=== PATIENT | female | born 1960 | race African-American/Black ===

== ENCOUNTER 2016-11-23 17:50 | Emergency (ER) | payer OTHER ==
[2016-11-23 17:54] VITALS: TEMP 98.2; BMI 29.2
--- NOTE | 2016-11-23 19:02 | PDOC ---
History of Present Illness - General Chief Complaint: Chest Pain Stated Complaint: CHEST PAIN Time Seen by Provider: 11/23/16 18:31 History Source: Patient Exam Limitations: No Limitations - History of Present Illness Initial Comments: 56 yo F with h/o HTN and CAD s/p 2 stents presented to the ED with chest pain. The pain started this after around 2pm, substernal, non-radiating, 5/10 then and 3/10 now, not relieved with nitroglycerin and no other associated symptoms. Her last stress test and ECHO were 2 weeks ago and negative. Denies fever, chills, sob, abd pain, weakness, urinary or bowel symptoms. Past History - Past Medical History Allergies/Adverse Reactions: Allergies Allergy/AdvReac Type Severity Reaction Status Date / Time No Known Allergies Allergy Verified 11/23/16 17:54 Home Medications: Ambulatory Orders Amlodipine Besylate [Norvasc -] 5 mg PO DAILY 02/19/14 Clopidogrel Bisulfate [Plavix -] 75 mg PO DAILY 12/09/15 Metoprolol Succinate [Toprol XL -] 25 mg PO DAILY 12/09/15 Aspirin [ASA -] 81 mg PO DAILY #0 tab.chew 12/10/15 Atorvastatin Ca [Lipitor] 40 mg PO HS #0 tablet 12/10/15 Cardiac Disorders: Yes HTN: Yes - Surgical History Cardiac Surgery: Yes (STENT) - Psycho/Social/Smoking Cessation Hx Anxiety: No Suicidal Ideation: No Smoking Status: No Smoking History: Never smoked Number of Cigarettes Smoked Daily: 0 Hx Alcohol Use: Yes (wine and beer occasionally) Drug/Substance Use Hx: No Substance Use Type: Alcohol Review of Systems - Review of Systems Able to Perform ROS?: Yes Is the patient limited Bermudian proficient: No Constitutional: No: Chills, Fever Respiratory: No: Cough, Orthopnea, Shortness of Breath Cardiac (ROS): Yes: Chest Pain ABD/GI: No: Nausea, Vomiting, Abdominal cramping *Physical Exam - Vital Signs Last Vital Signs Temp Pulse Resp BP Pulse Ox 98.2 F 70 17 109/73 98 11/23/16 17:51 11/23/16 19:42 11/23/16 19:42 11/23/16 19:42 11/23/16 19:42 - Physical Exam General Appearance: No: Apparent Distress Neck: positive: Trachea midline, Supple Respiratory/Chest: positive: Lungs Clear, Normal Breath Sounds Cardiovascular: positive: Regular Rhythm, Regular Rate, S1, S2. negative: Murmur Gastrointestinal/Abdominal: positive: Normal Bowel Sounds. negative: Tender, Tenderness Extremity: negative: Swelling, Calf Tenderness Integumentary: negative: Swelling Neurologic: positive: Fully Oriented, Alert ED Treatment Course - LABORATORY CBC & Chemistry Diagram: 11/23/16 19:00 11/23/16 19:00 - ADDITIONAL ORDERS Additional order review: 11/23/16 19:00 RBC 4.43 MCV 90.4 MCHC 32.5 RDW 13.9 MPV 8.1 Neutrophils % 49.2 Lymphocytes % 38.9 Monocytes % 8.9 Eosinophils % 2.5 Basophils % 0.5 - RADIOLOGY Radiology Studies Ordered: Category Date Time Status CXRPORT [CHEST X-RAY PORTABLE*] [RAD] Stat Radiology 11/23/16 19:06 Completed Medical Decision Making - Medical Decision Making 11/23/16 19:01 *DC/Admit/Observation/Transfer Diagnosis at time of Disposition: Precordial chest pain - Discharge Dispostion Disposition: HOME Condition at time of disposition: Stable Admit: No - Referrals Referrals: Jayy Nguyễn MD [Primary Care Provider] - Mono Mishra MD [Staff Physician] - - Patient Instructions Printed Discharge Instructions: DI for Chest Pain Additional Instructions: Please 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
[2016-11-23 19:16] LABS: BASOPHIL 0.5 % (0-2.0); EOSINOPHIL 2.5 % (0-4.5); MCH 29.4 pg (25.7-33.7); MCHC 32.5 g/dl (32.0-36.0); MEAN CELL VOLUME 90.4 fl (80-96); MEAN PLT VOLUME 8.1 fl (7.5-11.1); NEUTROPHILS 49.2 % (42.8-82.8); PLATELET COUNT 140 K/MM3 (134-434); RDW 13.9 % (11.6-15.6); WHITE BLOOD COUNT 4.2 K/mm3 (4.0-10.0)
[2016-11-23 19:37] LABS: ALBUMIN 3.7 g/dl (3.4-5.0); ALK PHOS 81 U/L (45-117); ANION GAP 10 (8-16); BILIRUBIN,TOTAL 0.5 mg/dL (0.2-1.0); CALCIUM 8.9 mg/dL (8.5-10.1); CO2 28 mmol/L (21-32); COCKROFT - GAULT 148.4355; CREATININE 0.6 mg/dL (0.55-1.02); GLUCOSE,RANDOM 100 mg/dL (74-106); SGOT/AST 35 U/L (15-37); SGPT/ALT 35 U/L (12-78); TOT PROT 7.6 g/dl (6.4-8.2)
[2016-11-23 19:38] LABS: TROPONIN I < 0.02 ng/ml (0.00-0.05)
[2016-11-23 19:42] VITALS: BP 109/73; PULSE 70
[2016-11-23 20:00] LABS: URINE APPEARANCE CLEAR; URINE BILIRUBIN NEGATIVE (NEGATIVE); URINE BLOOD NEGATIVE (NEGATIVE); URINE COLOR STRAW; URINE GLUCOSE (UA) NEGATIVE (NEGATIVE); URINE KETONE NEGATIVE (NEGATIVE); URINE NITRITE NEGATIVE (NEGATIVE); URINE PROTEIN NEGATIVE (NEGATIVE); URINE UROBILINOGEN NEGATIVE E.U./dl (0.2-1.0)
[2016-11-23 20:26] LABS: URINE LEUK ESTERASE 1+ (NEGATIVE)
[2016-11-23 20:27] LABS: URINE BACTERIA RARE /hpf (NONE SEEN); URINE MUCUS RARE; URINE RBC 1 /hpf (0-3); URINE WBC 4 /hpf (3-5)
[2016-11-24 00:38] LABS: TROPONIN I < 0.02 ng/ml (0.00-0.05)
--- NOTE | 2016-11-24 01:04 | PDOC ---
*Physical Exam - Vital Signs Last Vital Signs Temp Pulse Resp BP Pulse Ox 98.2 F 70 17 109/73 98 11/23/16 17:51 11/23/16 19:42 11/23/16 19:42 11/23/16 19:42 11/23/16 19:42 ED Treatment Course - LABORATORY CBC & Chemistry Diagram: 11/23/16 19:00 11/23/16 19:00 - ADDITIONAL ORDERS Additional order review: Laboratory Results 11/24/16 11/23/16 11/23/16 00:08 19:35 19:00 Sodium Potassium Chloride Carbon Dioxide Anion Gap BUN Creatinine Creat Clearance w eGFR Random Glucose Calcium Magnesium Total Bilirubin AST ALT Alkaline Phosphatase Creatine Kinase 510 H 604 H D CK-MB (CK-2) 7.023 H Troponin I < 0.02 < 0.02 Total Protein Albumin Urine Color Straw Urine Appearance Clear Urine pH 7.0 D Ur Specific [place] 1.008 Urine Protein Negative Urine Glucose (UA) Negative Urine Ketones Negative Urine Blood Negative Urine Nitrite Negative Urine Bilirubin Negative Urine Urobilinogen Negative Ur Leukocyte Esterase 1+ H Urine RBC 1 Urine WBC 4 Ur Epithelial Cells Rare Urine Bacteria Rare Urine Mucus Rare 11/23/16 11/23/16 19:00 19:00 Sodium 141 Potassium 4.0 Chloride 103 Carbon Dioxide 28 Anion Gap 10 BUN 10 Creatinine 0.6 Creat Clearance w eGFR > 60 Random Glucose 100 Calcium 8.9 Magnesium 2.2 Total Bilirubin 0.5 D AST 35 D ALT 35 Alkaline Phosphatase 81 Creatine Kinase CK-MB (CK-2) Troponin I Total Protein 7.6 Albumin 3.7 Urine Color Urine Appearance Urine pH Ur Specific [place] Urine Protein Urine Glucose (UA) Urine Ketones Urine Blood Urine Nitrite Urine Bilirubin Urine Urobilinogen Ur Leukocyte Esterase Urine RBC Urine WBC Ur Epithelial Cells Urine Bacteria Urine Mucus 11/23/16 19:00 RBC 4.43 MCV 90.4 MCHC 32.5 RDW 13.9 MPV 8.1 Neutrophils % 49.2 Lymphocytes % 38.9 Monocytes % 8.9 Eosinophils % 2.5 Basophils % 0.5 *DC/Admit/Observation/Transfer Diagnosis at time of Disposition: Precordial chest pain - Discharge Dispostion Disposition: HOME Condition at time of disposition: Stable Admit: No - Referrals Referrals: Jayy Nguyễn MD [Primary Care Provider] - Mono Mishra MD [Staff Physician] - - Patient Instructions Printed Discharge Instructions: DI for Chest Pain Additional Instructions: Please follow up with your pcp and supervisor dehydrogenation if symptoms don't get better
--- NOTE | 2016-11-24 12:58 | EKG ---
Test Reason : Blood Pressure : / mmHG Vent. Rate : 059 BPM Atrial Rate : 059 BPM P-R Int : 204 ms QRS Dur : 082 ms QT Int : 384 ms P-R-T Axes : 066 -01 030 degrees QTc Int : 380 ms POOR DATA QUALITY, INTERPRETATION MAY BE ADVERSELY AFFECTED SINUS BRADYCARDIA CANNOT RULE OUT SEPTAL INFARCT , AGE UNDETERMINED ABNORMAL ECG WHEN COMPARED WITH ECG OF 09-DEC-2015 14:50, POSSIBLE SEPTAL INFARCT IS NOW PRESENT Confirmed by RAMONA HINES MD ([id number]) on 11/24/2016 12:57:59 PM Referred By: Confirmed By:RAMONA HINES MD
--- NOTE | 2016-11-24 13:27 | EKG ---
Test Reason : Blood Pressure : / mmHG Vent. Rate : 059 BPM Atrial Rate : 059 BPM P-R Int : 202 ms QRS Dur : 090 ms QT Int : 392 ms P-R-T Axes : 066 -14 018 degrees QTc Int : 388 ms SINUS BRADYCARDIA OTHERWISE NORMAL ECG WHEN COMPARED WITH ECG OF 09-DEC-2015 14:50, NO SIGNIFICANT CHANGE WAS FOUND Confirmed by LILIBETH DONIS MD ([id number]) on 11/24/2016 1:27:09 PM Referred By: JEAN CLAUDE Confirmed By:LILIBETH DONIS MD
== END 2016-11-24 01:22 | disposition home or self-care (01) ==
LOC: JER 17:50
DX: R07.2 Precordial pain (principal); I10 Essential (primary) hypertension; Z95.5 Presence of coronary angioplasty implant and graft
CPT/HCPCS: 36415; 71010-TC; 80053; 81003; 81015; 82550; 82553; 83036; 83735; 84484; 85025; 93005; 93010; 99285-25

== ENCOUNTER 2018-05-26 08:36 | Emergency (ER) | payer OTHER ==
--- NOTE | 2018-05-26 08:41 | PDOC ---
Attending Attestation - Resident Resident Name: Shira Clarke - HPI HPI: 05/26/18 10:01 Pt presents to the ED complaining of the acute onset of vertigo that has now resolved. Patient reports that she had vertigo with diaphoresis, headache, gait unsteadiness, that resolved spontaneously within 20 minutes. also reports a brief episode of sharp, stabbing chest pain that lasted minutes. Denies shortness of breath. - Physicial Exam PE: 05/26/18 10:09 Agree with resident exam. PAtient is alert and oriented x 3 and in no acute distress. Cranial nerves are grossly intact. She is ambulatory with a steady gait. - Medical Decision Making 05/26/18 10:10 Pt presents to the ED complaining of a transient episode of vertigo. Patient has an extensive cardiac history, and for that reason, is at higher than usual risk of CVA. Will check labs and MRI to rule out CVA, likely discharge home if labs are negative.
[2018-05-26 08:43] VITALS: BMI 29.2
--- NOTE | 2018-05-26 09:57 | PDOC ---
History of Present Illness - General Chief Complaint: Lightheaded Stated Complaint: DIZZINESS Time Seen by Provider: 05/26/18 08:40 History Source: Patient - History of Present Illness Initial Comments: 57F w/ pmhx of HTN, HLD, CAD (s/p 2 stents) presents with dizziness. Pt states last night she had a 10/10 headache at 10:30pm while watching TV after which she checked her BP which was 133/84 at the time. At the time, she also reported substernal chest pain with radiation to the L breast. Pt states she has had this chest pain before, but has since resolved. She proceeded to sleep and woke up this morning with new onset dizziness. Pt reports that during this time, the room was spinning and she was unable to walk to the bathroom because of the dizziness. She does state taking all of her medications this morning. Admits to drinking hot chocolate this AM. Upon exam in the ED, her symptoms have since resolved. Denies f/c, n/v, cp, sob, abd pain, urinary/bowel symptoms. 05/26/18 09:51 Past History - Past Medical History Allergies/Adverse Reactions: Allergies Allergy/AdvReac Type Severity Reaction Status Date / Time No Known Allergies Allergy Verified 05/26/18 08:38 Home Medications: Ambulatory Orders Amlodipine Besylate [Norvasc -] 5 mg PO DAILY 02/19/14 Clopidogrel Bisulfate [Plavix -] 75 mg PO DAILY 12/09/15 Metoprolol Succinate [Toprol XL -] 25 mg PO DAILY 12/09/15 Aspirin [ASA -] 81 mg PO DAILY #0 tab.chew 12/10/15 Atorvastatin Ca [Lipitor] 40 mg PO HS #0 tablet 12/10/15 Cardiac Disorders: Yes (cad) COPD: No HTN: Yes - Surgical History Cardiac Surgery: Yes (STENT) - Suicide/Smoking/Psychosocial Hx Smoking Status: No Smoking History: Never smoked Number of Cigarettes Smoked Daily: 0 Information on smoking cessation initiated: No Hx Alcohol Use: No Drug/Substance Use Hx: No Substance Use Type: Alcohol Review of Systems - Review of Systems Able to Perform ROS?: Yes Is the patient limited Malian proficient: No Constitutional: No: Chills, Fever HEENTM: No: Blurred Vision, Recent change in vision, Double Vision, Hearing Loss Respiratory: No: Shortness of Breath, SOB with Exertion, SOB at Rest Cardiac (ROS): Yes: See HPI ABD/GI: Yes: Constipated. No: Diarrhea, Nausea, Vomiting Neurological: Yes: See HPI *Physical Exam - Vital Signs Last Vital Signs Temp Pulse Resp BP Pulse Ox 99.0 F 77 18 144/78 100 05/26/18 08:38 05/26/18 08:38 05/26/18 08:38 05/26/18 08:38 05/26/18 09:03 - Physical Exam General Appearance: Yes: Appropriately Dressed HEENT: positive: Normal ENT Inspection Neck: positive: Supple Respiratory/Chest: positive: Normal Breath Sounds Cardiovascular: positive: Regular Rhythm, Regular Rate, S1, S2 Vascular Pulses: Dorsalis-Pedis (R): 2+, Doralis-Pedis (L): 2+ Neurologic: positive: manager food II-XII NML intact (Romberg test, [id number], heel- to-walters test WNL), Fully Oriented ED Treatment Course - LABORATORY CBC & Chemistry Diagram: 05/26/18 09:30 05/26/18 09:30 Medical Decision Making - Medical Decision Making 05/26/18 11:32 Dizziness; Ddx includes vertigo, TIA, orthostatic hypotension -Likely transient vertigo episode given resolution of patient's symptoms normal cerebellar testing on physical exam -Will obtain Head CT and brain MRI to rule out stroke/TIA because of patient's significant cardiac/vascular history (Pt has CAD s/p 2 stents) -Unlikely orthostasis:Supine 123/72, Sitting 117/76, Standing 123/71 -CBC, CMP, U/A, CK, CKMB, cardiac profile, 05/26/18 10:07 -Head CT neg 05/26/18 11:04 -Trops, CK, CK-MB neg -Awaiting brain MRI results 05/26/18 16:48 -Brain MRI results not concerning for any acute condition. 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 -Recommended pt to follow up with pcp and given referral to see neurologist for further evaluation. *DC/Admit/Observation/Transfer Diagnosis at time of Disposition: Dizziness - Discharge Dispostion Disposition: HOME Condition at time of disposition: Good Decision to Admit order: No - Referrals Referrals: Jayy Nguyễn MD [Primary Care Provider] - Alex Stokes MD [Staff Physician] - - Patient Instructions Additional Instructions: You were seen in the ED for complaints of dizziness. In the ED, a CT head and brain MRI were done. Your results did not show any acute condition. You are advised to follow up with your primary care physician within 1 week. Please also follow up with a neurologist within 1 week. You are given a referral to see Dr. Stokes. If you experience persistent dizziness, worsening headache, vision changes, chest pain, shortness of breath, please proceed to your nearest emergency room immediately. - Post Discharge Activity
[2018-05-26 10:04] LABS: BASO % 0.9 % (0-2.0); EOS % 2.3 % (0-4.5); HEMATOCRIT 38.6 % (32.4-45.2); HEMOGLOBIN 12.7 GM/dL (10.7-15.3); MCH 29.3 pg (25.7-33.7); MCHC 32.9 g/dl (32.0-36.0); MEAN CELL VOLUME 89.2 fl (80-96); MEAN PLT VOLUME 8.8 fl (7.5-11.1); MONO % 10.4 % (3.8-10.2); NEUT % 50.4 % (42.8-82.8); PLATELET COUNT 172 K/MM3 (134-434); RBC 4.33 M/mm3 (3.60-5.2); WHITE BLOOD COUNT 3.8 K/mm3 (4.0-10.0)
[2018-05-26 10:20] LABS: ALBUMIN 3.6 g/dl (3.4-5.0); ALK PHOS 92 U/L (45-117); ANION GAP 8 MMOL/L (8-16); BILIRUBIN,TOTAL 0.5 mg/dL (0.2-1); BLOOD UREA NITROGEN 13 mg/dL (7-18); CALCIUM 8.4 mg/dL (8.5-10.1); CHLORIDE 109 mmol/L (98-107); CO2 25 mmol/L (21-32); CREATININE 0.7 mg/dL (0.55-1.3); GLUCOSE,RANDOM 107 mg/dL (74-106); POTASSIUM 3.7 mmol/L (3.5-5.1); SGOT/AST 23 U/L (15-37); SGPT/ALT 27 U/L (13-61); SODIUM 142 mmol/L (136-145); TOT PROT 7.6 g/dl (6.4-8.2)
[2018-05-26 10:37] LABS: URINE APPEARANCE SLCLOUDY; URINE BILIRUBIN NEGATIVE (<2.0 mg/dL); URINE COLOR YELLOW; URINE GLUCOSE (UA) NEGATIVE (NEGATIVE); URINE KETONE NEGATIVE (NEGATIVE); URINE LEUK ESTERASE TRACE (NEGATIVE); URINE NITRITE NEGATIVE (NEGATIVE); URINE PROTEIN NEGATIVE (NEGATIVE); URINE UROBILINOGEN NEGATIVE mg/dL (0.2-1.0)
[2018-05-26 10:56] LABS: EPI CELLS FEW /HPF (FEW); URINE MUCUS RARE
[2018-05-26] MEDS ORDERED: MIDAZOLAM HCL 2 MG/2 ML SINGLE DOSE VIAL IVPUSH ONE (11:48)
[2018-05-26] MEDS ORDERED: MIDAZOLAM HCL 2 MG/2 ML SINGLE DOSE VIAL ONE (12:01)
--- NOTE | 2018-05-26 14:53 | EKG ---
Test Reason : Blood Pressure : / mmHG Vent. Rate : 062 BPM Atrial Rate : 062 BPM P-R Int : 200 ms QRS Dur : 090 ms QT Int : 390 ms P-R-T Axes : 064 -10 021 degrees QTc Int : 395 ms NORMAL SINUS RHYTHM NORMAL ECG WHEN COMPARED WITH ECG OF 24-NOV-2016 00:03, NO SIGNIFICANT CHANGE WAS FOUND Confirmed by MD Mcdowell Edward ([id number]) on 05/26/2018 2:52:57 PM Referred By: Confirmed By:Demario Mcdowell MD
[2018-05-26 15:52] VITALS: BP 105/74; PULSE 81; TEMP 98.3
== END 2018-05-26 15:52 | disposition home or self-care (01) ==
LOC: JER 08:36
PROC: 3E033NZ Introduction of Analgesics, Hypnotics, Sedatives into Peripheral Vein, Percutaneous Approach (ICD-10-PCS; principal; 2018-05-26)
DX: R42 Dizziness and giddiness (principal); I25.10 Atherosclerotic heart disease of native coronary artery without angina pectoris; I10 Essential (primary) hypertension; Z95.5 Presence of coronary angioplasty implant and graft; E78.5 Hyperlipidemia, unspecified
CPT/HCPCS: 36415; 70450-TC; 70551-TC; 80053; 81003; 81015; 82550; 82553; 84484; 85025; 93005; 93010; 99284-25

== ENCOUNTER 2018-06-20 09:14 | Emergency (ER) | payer OTHER ==
[2018-06-20 09:59] VITALS: BMI 29.5
[2018-06-20] MEDS ORDERED: ACETAMINOPHEN 1000 MG/100 ML VIAL (NON FORMULARY) IVPB ONE (11:17)
[2018-06-20] MEDS ORDERED: SODIUM CHLORIDE 1,000 ML IV STA (11:17)
[2018-06-20] MEDS ORDERED: METOCLOPRAMIDE HCL INJECTION 10 MG/2 ML VIAL IVPB ONE (11:18)
[2018-06-20] MEDS ORDERED: METOCLOPRAMIDE HCL INJECTION 10 MG/2 ML VIAL ONE (11:35)
[2018-06-20] MEDS ORDERED: ACETAMINOPHEN INJECTION 100 ML IVPB ONE (11:35)
[2018-06-20 12:07] LABS: BASO % 0.5 % (0-2.0); EOS % 0.8 % (0-4.5); HEMATOCRIT 41.6 % (32.4-45.2); HEMOGLOBIN 13.1 GM/dL (10.7-15.3); LYMPH % 36.6 % (8-40); MCH 28.3 pg (25.7-33.7); MCHC 31.6 g/dl (32.0-36.0); MEAN CELL VOLUME 89.5 fl (80-96); MONO % 8.7 % (3.8-10.2); NEUT % 53.4 % (42.8-82.8); PLATELET COUNT 168 K/MM3 (134-434); RBC 4.64 M/mm3 (3.60-5.2); RDW 13.8 % (11.6-15.6)
[2018-06-20 12:30] LABS: ALBUMIN 3.5 g/dl (3.4-5.0); ALK PHOS 102 U/L (45-117); ANION GAP 6 MMOL/L (8-16); BILIRUBIN,TOTAL 0.5 mg/dL (0.2-1); BLOOD UREA NITROGEN 14 mg/dL (7-18); CALCIUM 8.6 mg/dL (8.5-10.1); CHLORIDE 106 mmol/L (98-107); CO2 26 mmol/L (21-32); CREATININE 0.7 mg/dL (0.55-1.3); GLUCOSE,RANDOM 95 mg/dL (74-106); SGOT/AST 20 U/L (15-37); SGPT/ALT 29 U/L (13-61); SODIUM 138 mmol/L (136-145); TOT PROT 7.6 g/dl (6.4-8.2)
--- NOTE | 2018-06-20 13:19 | PDOC ---
History of Present Illness - General Chief Complaint: Blood Pressure Problem Stated Complaint: BLOOD PRESSURE PROBLEM Time Seen by Provider: 06/20/18 10:18 - History of Present Illness Initial Comments: 06/20/18 13:12 This is a 57 year old female with a significant past medical history of HTN, HLD , CAD (s/p 2 stents), who presents to the emergency department today complaining of 2 days of elevated blood pressure and intermittent headache. Patient notes she began experiencing a localized right-sided frontal headache yesterday morning, prompting her to check her BP which she measured at 145/105. She describes the headache as gradual onset, sharp and throbbing. Headache resolved without treatment, but returned in the evening. She states her blood pressure remained elevated and this morning at 135/106 prompting her to come to the ED. She notes her normal blood pressure is around 130/70. Took her amlodipine and metoprolol last night as prescribed. Reports similar headaches in the past that also occur on the L side. Has never seen a neurologist for her headaches but has an appointment 07/[address] Diane. BP in the ED mildly elevated to 139/80, pt states she feels much better at this time and denies see. Denies any other sxs. Denies fever, chills. Denies SOB or chest pain. Denies focal weakness, numbness, stiff neck, dizziness, photophobia Denies nausea, vomiting, diarrhea. Denies urinary or bowel changes. Denies recent illness or travel. PCP:Dr. Nguyễn Past History - Past Medical History Allergies/Adverse Reactions: Allergies Allergy/AdvReac Type Severity Reaction Status Date / Time No Known Allergies Allergy Verified 06/20/18 09:56 Home Medications: Ambulatory Orders Amlodipine Besylate [Norvasc -] 5 mg PO DAILY 02/19/14 Clopidogrel Bisulfate [Plavix -] 75 mg PO DAILY 12/09/15 Metoprolol Succinate [Toprol XL -] 25 mg PO DAILY 12/09/15 Aspirin [ASA -] 81 mg PO DAILY #0 tab.chew 12/10/15 Atorvastatin Ca [Lipitor] 40 mg PO HS #0 tablet 12/10/15 Cardiac Disorders: Yes (cad) COPD: No HTN: Yes - Surgical History Cardiac Surgery: Yes (STENT) - Immunization History Immunization Up to Date: Yes - Suicide/Smoking/Psychosocial Hx Smoking Status: No Smoking History: Never smoked Number of Cigarettes Smoked Daily: 0 Hx Alcohol Use: No Drug/Substance Use Hx: No Substance Use Type: Alcohol Review of Systems - Review of Systems Comments:: 06/20/18 13:19 GENERAL/CONSTITUTIONAL: No fever or chills. No weakness. HEAD, EYES, EARS, NOSE AND THROAT: No change in vision. No ear pain or discharge. No sore throat. GASTROINTESTINAL: No nausea, vomiting, diarrhea or constipation. GENITOURINARY: No dysuria, frequency, or change in urination. CARDIOVASCULAR: No chest pain or shortness of breath. RESPIRATORY: No cough, wheezing, or hemoptysis. MUSCULOSKELETAL: No joint or muscle swelling or pain. No neck or back pain. SKIN: No rash NEUROLOGIC: +Right-sided frontal headache. No vertigo, loss of consciousness, or change in strength/sensation. ENDOCRINE: No increased thirst. No abnormal weight change. HEMATOLOGIC/LYMPHATIC: No anemia, easy bleeding, or history of blood clots. ALLERGIC/IMMUNOLOGIC: No hives or skin allergy. *Physical Exam - Vital Signs Last Vital Signs Temp Pulse Resp BP Pulse Ox 98.8 F 80 18 139/82 97 06/20/18 09:56 06/20/18 09:56 06/20/18 09:56 06/20/18 09:56 06/20/18 09:56 - Physical Exam Comments: 06/20/18 13:19 GENERAL: Well-appearing and pleasant. Awake, alert, and fully oriented, in no acute distress HEAD: No signs of trauma EYES: PERRLA, EOMI, sclera anicteric, conjunctiva clear ENT: Auricles normal inspection, hearing grossly normal, nares patent, oropharynx clear without exudates. Moist mucosa NECK: Normal ROM, supple, no lymphadenopathy, JVD, or masses LUNGS: Breath sounds equal, clear to auscultation bilaterally. No wheezes, and no crackles HEART: Regular rate and rhythm, normal S1 and S2, no murmurs, rubs or gallops ABDOMEN: Soft, nontender, normoactive bowel sounds. No guarding, no rebound. No masses EXTREMITIES: Normal range of motion, no edema. No clubbing or cyanosis. No cords , erythema, or tenderness BACK: No midline spinal tenderness in cervical/thoracic/lumbar region NEUROLOGICAL: Normal speech, cranial nerves intact, negative pronator drift, 5/ 5 strength in all 4 extremities, normal sensation to light touch in all 4 extremities, normal cerebellar exam, normal gait, normal reflexes and tone SKIN: Warm, Dry, normal turgor, no rashes or lesions noted. ED Treatment Course - LABORATORY CBC & Chemistry Diagram: 06/20/18 11:40 06/20/18 11:40 - ADDITIONAL ORDERS Additional order review: Laboratory Results 06/20/18 11:40 Sodium 138 Potassium 4.0 Chloride 106 Carbon Dioxide 26 Anion Gap 6 L BUN 14 Creatinine 0.7 Creat Clearance w eGFR > 60 Random Glucose 95 Calcium 8.6 Total Bilirubin 0.5 AST 20 ALT 29 Alkaline Phosphatase 102 Total Protein 7.6 Albumin 3.5 06/20/18 11:40 RBC 4.64 MCV 89.5 MCHC 31.6 L RDW 13.8 MPV 8.0 Neutrophils % 53.4 Lymphocytes % 36.6 Monocytes % 8.7 Eosinophils % 0.8 Basophils % 0.5 - Medications Given in the ED: ED Medications Discontinued Medications Generic Name Dose Route Start Last Admin Trade Name Rajinder PRN Reason Stop Dose Admin Acetaminophen 1,000 mg 06/20/18 11:17 06/20/18 11:46 Ofirmev Injection - IVPB 06/20/18 11:18 1,000 mg ONCE ONE Administration Sodium Chloride 1,000 mls @ 1,000 mls/hr 06/20/18 11:17 06/20/18 11:46 Normal Saline - IV 06/20/18 12:16 1,000 mls/hr ASDIR STA Administration Metoclopramide HCl 10 mg 06/20/18 11:18 06/20/18 11:46 Reglan Injection - IVPB 06/20/18 11:19 10 mg ONCE ONE Administration Medical Decision Making - Medical Decision Making 06/20/18 13:19 57yo F hx HTN, HL, CAD presents to the ED with concern for high BP and intermittent R sided headache. BP wnl in ED. Remaining vitals wnl. Exam unremarkable, neurologically intact. Basic labs wnl. Given c/o int headache, treated with fluids, reglan, tylenol and pt is currently asymtomatic. BP cuff at home likely incorrect. Headache with no red flags. Pt is well appearing, requests DC home. Pt to f/u with Dr. Nguyễn within [address] Diane next month. I discussed the physical exam findings, ancillary test results and final diagnoses with the patient. I answered all of the patient's questions. The patient was satisfied with the care received and felt comfortable with the discharge plan and treatment plan. The patient will call their primary care physician within 24 hours to arrange follow-up and will return to the Emergency Department with any new, persistent or worsening symptoms. *DC/Admit/Observation/Transfer Diagnosis at time of Disposition: Headache, HTN (hypertension) - Discharge Dispostion Disposition: HOME Condition at time of disposition: Stable Decision to Admit order: No - Referrals Referrals: Jayy Nguyễn MD [Primary Care Provider] - - Patient Instructions Printed Discharge Instructions: DI for Headache Additional Instructions: Follow up with Dr. Nguyễn within [address] Diane as scheduled next week. Take your medications as prescribed. Return to the emergency department if you have any new, worsening, or concerning symptoms - Post Discharge Activity - Attestations Physician Attestion: 06/20/18 13:23 I, Dr. Vern Joseph MD, attest that this document has been prepared under my direction and personally reviewed by me in its entirety. I further attest, that it accurately reflects all work, treatment, procedures and medical decision -making performed by me.
[2018-06-20 14:14] VITALS: BP 116/75; PULSE 79; TEMP 98.3
== END 2018-06-20 13:33 | disposition home or self-care (01) ==
LOC: JER 09:14
PROC: 3E033NZ Introduction of Analgesics, Hypnotics, Sedatives into Peripheral Vein, Percutaneous Approach (ICD-10-PCS; principal; 2018-06-20)
PROC: 3E033GC Introduction of Other Therapeutic Substance into Peripheral Vein, Percutaneous Approach (ICD-10-PCS; 2018-06-20)
DX: I10 Essential (primary) hypertension (principal); R51 Headache; I25.10 Atherosclerotic heart disease of native coronary artery without angina pectoris; Z95.5 Presence of coronary angioplasty implant and graft
CPT/HCPCS: 36415; 80053; 85025; 99282-25; J0131; J7030

== ENCOUNTER 2019-03-26 13:35 | Emergency (ER) | payer OTHER ==
[2019-03-26 13:44] VITALS: BP 148/81; PULSE 75; TEMP 98.4; BMI 28.6
--- NOTE | 2019-03-26 13:44 | PDOC ---
Rapid Medical Evaluation Chief Complaint: Injury Time Seen by Provider: 03/26/19 13:42 Medical Evaluation: Allergies Allergy/AdvReac Type Severity Reaction Status Date / Time No Known Allergies Allergy Verified 06/20/18 09:56 03/26/19 13:42 Pt presents for L knee pain and hip pain after a mechanical trip and fall today. States her knee gave out and she fell. Denies hitting her head or losing consciousness Exam: ambulatory, minimal swelling to the L knee Orders: X-ray Pt to proceed to the ER for further evaluation Discharge Disposition - Diagnosis Knee pain - Referrals - Patient Instructions - Post Discharge Activity
--- NOTE | 2019-03-26 14:02 | PDOC ---
History of Present Illness - General Chief Complaint: Injury Stated Complaint: FALL Time Seen by Provider: 03/26/19 13:42 History Source: Patient Exam Limitations: Clinical Condition - History of Present Illness Initial Comments: 03/26/19 15:05 Patient with no significant past medical history present with complaint of left knee and left pain status post knee giving out while at work until curbside and falling on the left side of the body over an hour ago. Denies hitting head or loss of consciousness. Patient reported increased pain to left knee and hip with ambulation. Patient did not take anything for pain. Denies dizziness, headache, weakness and hip or knee. Denies any other symptoms Occurred: reports: just prior to arrival Past History - Past Medical History Allergies/Adverse Reactions: Allergies Allergy/AdvReac Type Severity Reaction Status Date / Time No Known Allergies Allergy Verified 03/26/19 13:44 Home Medications: Ambulatory Orders Amlodipine Besylate [Norvasc -] 5 mg PO DAILY 02/19/14 Clopidogrel Bisulfate [Plavix -] 75 mg PO DAILY 12/09/15 Metoprolol Succinate [Toprol XL -] 25 mg PO DAILY 12/09/15 Aspirin [ASA -] 81 mg PO DAILY #0 tab.chew 12/10/15 Atorvastatin Ca [Lipitor] 40 mg PO HS #0 tablet 12/10/15 Methocarbamol [Robaxin -] 500 mg PO BID #14 tablet 03/26/19 Naproxen 500 mg PO BID PRN #20 tablet 03/26/19 Cardiac Disorders: Yes (cad) COPD: No HTN: Yes - Surgical History Cardiac Surgery: Yes (STENT) - Immunization History Immunization Up to Date: Yes - Suicide/Smoking/Psychosocial Hx Smoking Status: No Smoking History: Never smoked Number of Cigarettes Smoked Daily: 0 Hx Alcohol Use: No Drug/Substance Use Hx: No Substance Use Type: Alcohol Review of Systems - Review of Systems Able to Perform ROS?: Yes Is the patient limited Ukrainian proficient: No Constitutional: No: Malaise, Weakness HEENTM: No: Symptoms Reported Respiratory: No: Symptoms reported Cardiac (ROS): No: Symptoms Reported ABD/GI: No: Symptoms Reported Musculoskeletal: Yes: Symptoms Reported, See HPI, Joint Pain (left hip and left knee), Joint Swelling (left knee) Integumentary: Yes: Symptoms Reported, See HPI, Other (swelling to left knee) Neurological: No: Symptoms reported, Numbness, Paresthesia, Weakness All Other Systems: Reviewed and Negative *Physical Exam - Vital Signs Last Vital Signs Temp Pulse Resp BP Pulse Ox 98.4 F 75 18 148/81 98 03/26/19 13:42 03/26/19 13:42 03/26/19 13:42 03/26/19 13:42 03/26/19 13:42 - Physical Exam Comments: 03/26/19 14:01 GENERAL: Well developed, well nourished. Awake and alert. No acute distress. PULMONARY: No evidence of respiratory distress. MUSCULOSKELETAL : . Moderate tenderness over anterior patellar of left knee. No tenderness to medial, lateral posterior left knee. Moderate tenderness to left gluteal and posterior thigh on the left side. No step-off to left hip. SKIN: Warm and dry. Normal capillary refill. small areas superficial abrasions to anterior left knee with mild swelling to anterior patella of left knee NEUROLOGICAL: Alert, awake, appropriate. No motor deficits in the lower extremities. Gait is normal without ataxia. PSYCHIATRIC: Cooperative. Good eye contact. Appropriate mood and affect. General Appearance: Yes: Nourished, Appropriately Dressed, Apparent Distress, Mild Distress Medical Decision Making - Medical Decision Making 03/26/19 15:06 Patient with no significant past medical history present with complaint of left knee and left pain status post knee giving out while at work until curbside and falling on the left side of the body over an hour ago. Denies hitting head or loss of consciousness. Patient reported increased pain to left knee and hip with ambulation. Patient did not take anything for pain. Denies dizziness, headache, weakness and hip or knee. Denies any other symptoms Exam significant for small areas superficial abrasions to anterior left knee with mild swelling to anterior patella of left knee. Moderate tenderness over anterior patellar of left knee. No tenderness to medial, lateral posterior left knee. Moderate tenderness to left gluteal and posterior thigh on the left side. No step-off to left hip. Symptoms likely knee sprain with back contusion. Toradol 30 mg IM ordered for pain. X-ray of left knee and hip shows no acute fracture or dislocation. Patient is stable for discharge on naproxen and Robaxin when necessary for pain with advised to do cold compress today and switch to have compresses tomorrow for knee swelling and orthopedist follow-up as needed. Plan discussed this patient and patient stable for discharge *DC/Admit/Observation/Transfer Diagnosis at time of Disposition: Knee pain Qualifiers: Chronicity: acute Laterality: left Qualified Code(s): M25.562 - Pain in left knee Fall Qualifiers: Encounter type: initial encounter Qualified Code(s): W19.XXXA - Unspecified fall, initial encounter Contusion of hip, left Qualifiers: Encounter type: initial encounter Qualified Code(s): S70.02XA - Contusion of left hip, initial encounter - Discharge Dispostion Disposition: HOME Condition at time of disposition: Stable Decision to Admit order: No - Prescriptions Prescriptions: Methocarbamol [Robaxin -] 500 mg PO BID #14 tablet Naproxen 500 mg PO BID PRN #20 tablet PRN Reason: pain - Referrals Referrals: Saul Arrieta MD [Staff Physician] - - Patient Instructions Printed Discharge Instructions: DI for Knee Sprain, DI for Hip Pain Additional Instructions: Your x-rays shows no fracture or dislocations. Your pain is likely sprain. Take prescribed medication as needed for pain. Apply cold compress today and switch to hot compress tomorrow as needed for pain and swelling. Follow-up with referred orthopedics if symptoms persist for more than 4 days - Post Discharge Activity
[2019-03-26] MEDS ORDERED: KETOROLAC TROMETHAMINE 30 MG/1 ML VIAL ONE (14:04)
[2019-03-26] MEDS ORDERED: KETOROLAC TROMETHAMINE 30 MG/1 ML VIAL IM ONE (14:04)
== END 2019-03-26 15:10 | disposition home or self-care (01) ==
LOC: JERFT 13:35
PROC: 3E0233Z Introduction of Anti-inflammatory into Muscle, Percutaneous Approach (ICD-10-PCS; principal; 2019-03-26)
DX: S70.02XA Contusion of left hip, initial encounter (principal); M25.562 Pain in left knee; W10.1XXA Fall (on)(from) sidewalk curb, initial encounter; Y93.89 Activity, other specified; Y92.128 Other place in nursing home as the place of occurrence of the external cause; Y99.0 Civilian activity done for income or pay; I25.10 Atherosclerotic heart disease of native coronary artery without angina pectoris; I10 Essential (primary) hypertension; Z95.5 Presence of coronary angioplasty implant and graft
CPT/HCPCS: 73523-TC-FY; 73562-TC-LT-FY; 99282-25

== ENCOUNTER 2019-04-26 17:38 | Emergency (ER) | payer OTHER ==
[2019-04-26 17:48] VITALS: BP 121/78; PULSE 67; TEMP 97.8; BMI 28.3
--- NOTE | 2019-04-26 18:26 | PDOC ---
History of Present Illness - General Chief Complaint: Pain, Acute Stated Complaint: PAIN Time Seen by Provider: 04/26/19 18:09 History Source: Patient - History of Present Illness Initial Comments: 04/26/19 18:21 50-year-old female complaining of bilateral wrist pain and lower back pain for the last 1 month. Patient was seen in this ER for the fall where she fell with her arm outstretched and landed on the knees. patient reports that pain has been consistent for 1 month. 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 denies numbness or tingling to the lower extremity or hands. No incontinence of bowel or urine. Occurred: reports: other (one month) Past History - Past Medical History Allergies/Adverse Reactions: Allergies Allergy/AdvReac Type Severity Reaction Status Date / Time No Known Allergies Allergy Verified 03/26/19 13:44 Home Medications: Ambulatory Orders Amlodipine Besylate [Norvasc -] 5 mg PO DAILY 02/19/14 Clopidogrel Bisulfate [Plavix -] 75 mg PO DAILY 12/09/15 Metoprolol Succinate [Toprol XL -] 25 mg PO DAILY 12/09/15 Aspirin [ASA -] 81 mg PO DAILY #0 tab.chew 12/10/15 Atorvastatin Ca [Lipitor] 40 mg PO HS #0 tablet 12/10/15 Methocarbamol [Robaxin -] 500 mg PO BID #14 tablet 03/26/19 Naproxen 500 mg PO BID PRN #20 tablet 03/26/19 Cyclobenzaprine HCl [Flexeril -] 10 mg PO HS #4 tablet 04/26/19 Ibuprofen 600 mg PO QID PRN #10 tablet 04/26/19 Cardiac Disorders: Yes (cad) COPD: No HTN: Yes - Surgical History Cardiac Surgery: Yes (STENT) - Immunization History Immunization Up to Date: Yes - Psycho Social/Smoking Cessation Hx Smoking Status: No Smoking History: Never smoked Have you smoked in the past 12 months: No Number of Cigarettes Smoked Daily: 0 Information on smoking cessation initiated: No Hx Alcohol Use: Yes Drug/Substance Use Hx: No Substance Use Type: Alcohol Review of Systems - Review of Systems Able to Perform ROS?: Yes Is the patient limited Mongolian proficient: No Musculoskeletal: Yes: Back Pain, Other (bilateral wrist pain) *Physical Exam - Vital Signs Last Vital Signs Temp Pulse Resp BP Pulse Ox 97.8 F 67 16 121/78 98 04/26/19 17:46 04/26/19 17:46 04/26/19 17:46 04/26/19 17:46 04/26/19 17:46 - Physical Exam General Appearance: Yes: Appropriately Dressed Musculoskeletal: positive: Other (lateral, paraspinal area pain on palpation.). negative: Vertebral Tenderness Extremity: positive: Normal Capillary Refill, Other (slight edema to left wrist. Full ROM, no deformity, ) Integumentary: positive: Normal Color, Dry, Warm Neurologic: positive: Fully Oriented, Alert, Normal Mood/Affect ED Progress Note - Progress Note Progress Note: 04/26/19 18:29 low back pain; bilateral wrist pain P : x-ray to the left wrist NSAIDs Outpatient or to follow-up discussed. Discharge - Discharge Information Problems reviewed: Yes Clinical Impression/Diagnosis: Bilateral wrist pain Strain of wrist, left Qualifiers: Encounter type: initial encounter Qualified Code(s): S66.912A - Strain of unspecified muscle, fascia and tendon at wrist and hand level, left hand, initial encounter Low back pain Qualifiers: Chronicity: acute Back pain laterality: bilateral Sciatica presence: without sciatica Qualified Code(s): M54.5 - Low back pain Condition: Stable Disposition: HOME - Additional Discharge Information Prescriptions: Cyclobenzaprine HCl [Flexeril -] 10 mg PO HS #4 tablet Ibuprofen 600 mg PO QID PRN #10 tablet PRN Reason: Pain - Follow up/Referral Referrals: Jayy Nguyễn MD [Primary Care Provider] - Virgilio Argueta MD [Staff Physician] - Call tomorrow - Patient Discharge Instructions Patient Printed Discharge Instructions: DI for Low Back Pain Additional Instructions: take ibuprofen as prescribed. Apply ice to the area Use wrist splints for both wrists as tolerated Follow-up with an orthopedic doctor as soon as possible - Post Discharge Activity Work/Back to School Note: Back to Work
== END 2019-04-26 19:00 | disposition home or self-care (01) ==
LOC: JERFT 17:38
DX: S66.812A Strain of other specified muscles, fascia and tendons at wrist and hand level, left hand, initial encounter (principal); M54.5 Low back pain; Y93.F9 Activity, other caregiving; Y92.128 Other place in nursing home as the place of occurrence of the external cause; Y99.0 Civilian activity done for income or pay; X50.9XXA Other and unspecified overexertion or strenuous movements or postures, initial encounter; X50.0XXA Overexertion from strenuous movement or load, initial encounter; I25.10 Atherosclerotic heart disease of native coronary artery without angina pectoris; I10 Essential (primary) hypertension; Z95.5 Presence of coronary angioplasty implant and graft
CPT/HCPCS: 73110-TC-LT-FY; 73130-TC-LT-FY; 99282-25

== ENCOUNTER 2019-08-27 13:41 | Emergency (ER) | payer OTHER ==
[2019-08-27 13:51] VITALS: BP 128/81; PULSE 74; TEMP 98.3; BMI 28.5
--- NOTE | 2019-08-27 13:52 | PDOC ---
Rapid Medical Evaluation Chief Complaint: Pain, Acute Time Seen by Provider: 08/27/19 13:48 Medical Evaluation: Allergies Allergy/AdvReac Type Severity Reaction Status Date / Time No Known Allergies Allergy Verified 03/26/19 13:44 08/27/19 13:49 I have performed a brief in-person evaluation of this patient. The patient presents with a chief complaint of: RT shoulder pain and numbness and tingling sensation to right hands which improved with naproxen but comes back x 1 week Pertinent physical exam findings: weak grib in right hand. point tenderness to rith AC joint and posterior right shoulder I have ordered the following:rt shoulder x-ray The patient will proceed to the ED for further evaluation. Discharge Disposition - Diagnosis Right shoulder pain Qualifiers: Chronicity: acute Qualified Code(s): M25.511 - Pain in right shoulder - Discharge Dispostion Condition at time of disposition: Stable - Referrals - Patient Instructions - Post Discharge Activity
[2019-08-27] MEDS ORDERED: KETOROLAC TROMETHAMINE 30 MG/1 ML VIAL IM ONE (15:08)
--- NOTE | 2019-08-27 15:14 | PDOC ---
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 Patient is [id number] presents today complaining of atraumatic numbness, tingling, right shoulder and right-sided neck pain x1 week. Patient had cervical MRI in 2017 however does not recall the results. Followed up with pain management 6 months ago and was given an injection to the right shoulder for questionable arthritis. Patient last received physical therapy 2 years ago. Denies headache, fever, chills, chest pain, shortness of breath, vomiting or any other symptoms. ROS: GENERAL/CONSTITUTIONAL: No fever, chills, weakness, dizziness HEAD, EYES, EARS, NOSE AND THROAT: No changes in vision, No ear pain or discharge, No sore throat CARDIOVASCULAR: No chest pain RESPIRATORY: No shortness of breath or cough GASTROINTESTINAL: No pain, nausea, vomiting, diarrhea or constipation GENITOURINARY: No dysuria MUSCULOSKELETAL: Right-sided neck pain, right shoulder pain, no back pain SKIN: No rash NEUROLOGIC: Right upper extremity numbness and tingling, no headache, vertigo, loss of consciousness, or loss of sensation PE: GENERAL: well-appearing, tearful HEAD: NCAT EYES: Pupils equal, round and reactive to light, sclera anicteric, conjunctiva clear ENT: pharynx: no erythema, no exudate, uvula midline NECK: supple CHEST: nontender RESP: clear, no w/r/r CARDIO: rrr, no m/g/r ABD: +BS, soft, nontender, non distended BACK: no midline spinal ttp, no CVAT EXTREMITIES: Normal range of motion, no edema NEUROLOGICAL: 5/5 strength and sensation, normal speech, normal gait SKIN: Warm, Dry Is this a multiple visit Asthma Patient?: No Past History - Past Medical History Allergies/Adverse Reactions: Allergies Allergy/AdvReac Type Severity Reaction Status Date / Time No Known Allergies Allergy Verified 03/26/19 13:44 Home Medications: Ambulatory Orders Amlodipine Besylate [Norvasc -] 5 mg PO DAILY 02/19/14 Clopidogrel Bisulfate [Plavix -] 75 mg PO DAILY 12/09/15 Metoprolol Succinate [Toprol XL -] 25 mg PO DAILY 12/09/15 Aspirin [ASA -] 81 mg PO DAILY #0 tab.chew 12/10/15 Atorvastatin Ca [Lipitor] 40 mg PO HS #0 tablet 12/10/15 Methocarbamol [Robaxin -] 500 mg PO BID #14 tablet 03/26/19 Naproxen 500 mg PO BID PRN #20 tablet 03/26/19 Cyclobenzaprine HCl [Flexeril -] 10 mg PO HS #4 tablet 04/26/19 Ibuprofen 600 mg PO QID PRN #10 tablet 04/26/19 Gabapentin 100 mg PO TID #30 capsule 08/27/19 Cardiac Disorders: Yes (cad) COPD: No HTN: Yes - Surgical History Cardiac Surgery: Yes (STENT) - Immunization History Immunization Up to Date: Yes - Psycho Social/Smoking Cessation Hx Smoking Status: No Smoking History: Never smoked Have you smoked in the past 12 months: No Number of Cigarettes Smoked Daily: 0 Information on smoking cessation initiated: No Hx Alcohol Use: No Drug/Substance Use Hx: No Substance Use Type: Alcohol *Physical Exam - Vital Signs Last Vital Signs Temp Pulse Resp BP Pulse Ox 98.3 F 74 16 128/81 99 08/27/19 13:49 08/27/19 13:49 08/27/19 13:49 08/27/19 13:49 08/27/19 13:49 Medical Decision Making - Medical Decision Making 08/27/19 15:14 58-year-old female with history of hypertension and C-spine injury in 2015 while at work presents complaining of 1 week of right-sided neck pain, right shoulder pain, numbness and tingling to right lower extremity. No midline C-spine tenderness to palpation 5/5 strength and sensation Toradol IM x1 dose Will send prescription for gabapentin 100 mg 3 times daily Patient will follow-up with pain management tomorrow She will also follow-up with her PMD in 1 week Return precautions discussed Discharge - Discharge Information Problems reviewed: Yes Clinical Impression/Diagnosis: Cervical radiculopathy Right shoulder pain Qualifiers: Chronicity: acute Qualified Code(s): M25.511 - Pain in right shoulder Condition: Stable Disposition: HOME - Admission No - Additional Discharge Information Prescriptions: Gabapentin 100 mg PO TID #30 capsule - Follow up/Referral Referrals: Jayy Nguyễn MD [Primary Care Provider] - - Patient Discharge Instructions Additional Instructions: Take gabapentin 100 mg every 8 hours Take ibuprofen 600 mg every 6-8 hours as needed for pain Follow-up with pain management tomorrow Follow up with your primary care doctor within 1 week Return to ED if symptoms worsen - Post Discharge Activity Work/Back to School Note: Back to Work
[2019-08-27] MEDS ORDERED: KETOROLAC TROMETHAMINE 30 MG/1 ML VIAL ONE (15:17)
== END 2019-08-27 15:43 | disposition home or self-care (01) ==
LOC: JERFT 13:41
PROC: 3E0233Z Introduction of Anti-inflammatory into Muscle, Percutaneous Approach (ICD-10-PCS; principal; 2019-08-27)
DX: M54.12 Radiculopathy, cervical region (principal); S14.109S Unspecified injury at unspecified level of cervical spinal cord, sequela; Y92.128 Other place in nursing home as the place of occurrence of the external cause; Y99.0 Civilian activity done for income or pay; I25.10 Atherosclerotic heart disease of native coronary artery without angina pectoris; I10 Essential (primary) hypertension; Z95.5 Presence of coronary angioplasty implant and graft; Z79.02 Long term (current) use of antithrombotics/antiplatelets; Z79.82 Long term (current) use of aspirin
CPT/HCPCS: 73030-TC-RT-FY; 99282-25

== ENCOUNTER 2020-08-22 12:42 | Emergency (ER) | payer OTHER ==
[2020-08-22 13:12] VITALS: BP 134/82; PULSE 75; TEMP 98.2; BMI 30.2
== END 2020-08-22 14:46 | disposition home or self-care (01) ==
LOC: JERFT 12:42
DX: S80.00XA Contusion of unspecified knee, initial encounter (principal)
CPT/HCPCS: 73562-TC-LT-FY; 73562-TC-RT-FY; 99284-25

== ENCOUNTER 2021-09-22 14:55 | Observation (INO) | payer OTHER ==
[2021-09-22] MEDS ORDERED: LACTATED RINGERS SOLUTION 1000 ML INFUS.BAG IV ONE (16:17)
[2021-09-22] MEDS ORDERED: ACETAMINOPHEN 1000 MG/100 ML BAG IVPB ONE (16:17)
[2021-09-22] MEDS ORDERED: NITROGLYCERIN SUBLINGUAL 1/200 0.3 MG BTL SL ONE (16:25)
[2021-09-22 17:55] LABS: BASO % 0.4 % (0-2.0); EOS % 1.9 % (0-4.5); HEMATOCRIT 38.2 % (32.4-45.2); HEMOGLOBIN 12.5 GM/dL (10.7-15.3); LYMPH % 48.2 % (8-40); MCH 29.3 pg (25.7-33.7); MCHC 32.7 g/dl (32.0-36.0); MEAN CELL VOLUME 89.6 fl (80-96); MEAN PLT VOLUME 8.4 fl (7.5-11.1); MONO % 9.8 % (3.8-10.2); NEUT % 39.7 % (42.8-82.8); PLATELET COUNT 170 10^3/uL (134-434); RBC 4.26 M/mm3 (3.60-5.2); WHITE BLOOD COUNT 3.9 K/mm3 (4.0-10.0)
[2021-09-22 18:02] LABS: INR 0.96 (0.83-1.09)
[2021-09-22 18:04] LABS: ACTIVATED PTT 28.7 SECONDS (25.2-36.5)
[2021-09-22 18:13] LABS: CALCIUM 8.8 mg/dL (8.5-10.1)
[2021-09-22 18:14] LABS: ALBUMIN 3.5 g/dl (3.4-5.0)
[2021-09-22 18:17] LABS: CREATININE 0.7 mg/dL (0.55-1.3)
[2021-09-22 18:19] LABS: BILIRUBIN,TOTAL 0.5 mg/dL (0.2-1); TOT PROT 7.4 g/dl (6.4-8.2)
[2021-09-22] MEDS ORDERED: POLYETHYLENE GLYCOL (HEALTHYLAX) 3350 17 GM PACKET PO PRN (21:08)
[2021-09-22] MEDS ORDERED: ACETAMINOPHEN 325 MG TABLET (FP) PO PRN (21:08)
[2021-09-22 22:24] LABS: PH,URINE 5.5 (5.0-8.0); URINE APPEARANCE CLEAR; URINE BILIRUBIN NEGATIVE (NEGATIVE); URINE COLOR YELLOW; URINE GLUCOSE (UA) NEGATIVE (NEGATIVE); URINE KETONE NEGATIVE (NEGATIVE); URINE LEUK ESTERASE NEGATIVE (NEGATIVE); URINE NITRITE NEGATIVE (NEGATIVE); URINE PROTEIN NEGATIVE (NEGATIVE); URINE UROBILINOGEN 0.2 mg/dL (0.2-1.0)
[2021-09-23 03:47] VITALS: BMI 28.8
[2021-09-23] MEDS ORDERED: NAPROXEN 500 MG TABLET PO PRN (05:56)
[2021-09-23] MEDS ORDERED: METOCLOPRAMIDE HCL 10 MG TABLET (FP) PO PRN (06:01)
[2021-09-23] MEDS: BISACODYL 5 MG TABLET.DR (FP) PO SCH ×2 (07:22→14:12)
[2021-09-23 07:35] LABS: BASO % 0.4 % (0-2.0); EOS % 2.2 % (0-4.5); HEMATOCRIT 35.2 % (32.4-45.2); HEMOGLOBIN 11.3 GM/dL (10.7-15.3); LYMPH % 54.2 % (8-40); MCHC 32.2 g/dl (32.0-36.0); MEAN PLT VOLUME 8.8 fl (7.5-11.1); NEUT % 34.2 % (42.8-82.8); PLATELET COUNT 158 10^3/uL (134-434); RBC 3.91 M/mm3 (3.60-5.2); RDW 13.9 % (11.6-15.6)
[2021-09-23 07:46] LABS: BLOOD UREA NITROGEN 5.6 mg/dL (7-18); CALCIUM 8.2 mg/dL (8.5-10.1); MAGNESIUM 2.1 mg/dL (1.8-2.4)
[2021-09-23 07:53] LABS: CREATININE 0.6 mg/dL (0.55-1.3)
[2021-09-23] MEDS ORDERED: ENOXAPARIN NA (PORCINE) 40 MG/0.4 ML DISP.SYRIN SQ SCH (10:00)
[2021-09-23] MEDS ORDERED: ASPIRIN 325 MG TABLET PO SCH (10:00)
[2021-09-23] MEDS ORDERED: metoPROLOL SUCCINATE 25 MG TAB.SR.24H (FP) PO SCH (10:00)
[2021-09-23] MEDS ORDERED: amLODIPine BESYLATE 5 MG TABLET (FP) PO SCH (10:00)
[2021-09-23] MEDS ORDERED: PANTOPRAZOLE 40 MG TABLET PO SCH (10:00)
[2021-09-23 15:25] VITALS: BP 114/72; PULSE 65; TEMP 98.7
[2021-09-23] MEDS ORDERED: ATORVASTATIN CA 40 MG TABLET (FP) PO SCH (22:00)
== END 2021-09-23 16:48 | disposition home or self-care (01) ==
LOC: JER 14:55 → JERBED 18:47 → J4W 09-23 00:39
PROVIDERS: ADMIT Internal Medicine; ATTEND Internal Medicine
PROC: 3E033NZ Introduction of Analgesics, Hypnotics, Sedatives into Peripheral Vein, Percutaneous Approach (ICD-10-PCS; principal; 2021-09-22)
PROC: 3E023GC Introduction of Other Therapeutic Substance into Muscle, Percutaneous Approach (ICD-10-PCS; 2021-09-22)
PROC: 3E0337Z Introduction of Electrolytic and Water Balance Substance into Peripheral Vein, Percutaneous Approach (ICD-10-PCS; 2021-09-22)
DX: R07.9 Chest pain, unspecified (principal); K59.09 Other constipation; Z86.79 Personal history of other diseases of the circulatory system; Z86.39 Personal history of other endocrine, nutritional and metabolic disease; I25.10 Atherosclerotic heart disease of native coronary artery without angina pectoris; I11.9 Hypertensive heart disease without heart failure
CPT/HCPCS: 36415; 71045-TC-FY; 80048; 80053; 80061; 81003; 83036; 83735; 84443; 84484; 85025; 85610; 85730; 87086; 93005; 93010; 93306-TC; 96372; 96374; 99285-25; C9803; G0378; U0003; U0005

== ENCOUNTER 2022-05-23 12:54 | Emergency (ER) | payer OTHER ==
[2022-05-23 13:09] VITALS: BP 133/67; PULSE 84; RESP 18; TEMP 97.9; BMI 29.0
[2022-05-23] MEDS ORDERED: LIDOCAINE 5% TOPICAL PATCH TP ONE (14:08)
[2022-05-23] MEDS ORDERED: KETOROLAC TROMETHAMINE 30 MG/1 ML VIAL IM ONE (14:08)
[2022-05-23] MEDS ORDERED: ACETAMINOPHEN 500 MG TABLET (FP) PO ONE (14:08)
[2022-05-23] MEDS ORDERED: CYCLOBENZAPRINE HCL 10 MG TABLET (FP) PO ONE (14:08)
[2022-05-23] MEDS ORDERED: LIDOCAINE 5% TOPICAL PATCH ONE (14:10)
[2022-05-23] MEDS ORDERED: ACETAMINOPHEN 500 MG TABLET (FP) ONE (14:10)
[2022-05-23] MEDS ORDERED: CYCLOBENZAPRINE HCL 10 MG TABLET (FP) ONE (14:10)
[2022-05-23] MEDS ORDERED: KETOROLAC TROMETHAMINE 30 MG/1 ML VIAL ONE (14:10)
[2022-05-23] MEDS ORDERED: LIDOCAINE PATCH REMOVAL MC ONE (22:00)
== END 2022-05-23 15:17 | disposition home or self-care (01) ==
LOC: JERFT 12:54
PROC: 3E0233Z Introduction of Anti-inflammatory into Muscle, Percutaneous Approach (ICD-10-PCS; principal; 2022-05-23)
DX: M54.2 Cervicalgia (principal); M54.6 Pain in thoracic spine; V49.50XA Passenger injured in collision with unspecified motor vehicles in traffic accident, initial encounter; Y92.9 Unspecified place or not applicable
CPT/HCPCS: 99283-25

== ENCOUNTER 2022-06-03 04:27 | Day surgery (SDC) | payer OTHER ==
[2022-06-01 13:49] VITALS: BMI 28.5
[2022-06-03 13:11] VITALS: TEMP 98
[2022-06-03 14:31] VITALS: BP 121/62; PULSE 67; RESP 16
== END 2022-06-03 13:42 | disposition home or self-care (01) ==
LOC: JASU-ENDO 04:27
PROVIDERS: ATTEND Internal Medicine Gastroenterology
PROC: 0DB78ZX Excision of Stomach, Pylorus, Via Natural or Artificial Opening Endoscopic, Diagnostic (ICD-10-PCS; 2022-06-03)
PROC: 0DB98ZX Excision of Duodenum, Via Natural or Artificial Opening Endoscopic, Diagnostic (ICD-10-PCS; principal; 2022-06-03 12:00)
DX: K29.40 Chronic atrophic gastritis without bleeding (principal); K21.9 Gastro-esophageal reflux disease without esophagitis; I10 Essential (primary) hypertension; E11.9 Type 2 diabetes mellitus without complications
CPT/HCPCS: 88305-TC; 88342-TC

== ENCOUNTER 2022-06-09 16:49 | Emergency (ER) | payer OTHER ==
[2022-06-09 16:59] VITALS: BP 148/124; PULSE 78; RESP 18; TEMP 97.4; BMI 29.0
[2022-06-09] MEDS ORDERED: KETOROLAC TROMETHAMINE 15 MG/ML VIAL IM ONE (17:56)
[2022-06-09] MEDS ORDERED: ACETAMINOPHEN 325 MG TABLET (FP) PO ONE (17:56)
[2022-06-09] MEDS ORDERED: LIDOCAINE 5% TOPICAL PATCH TP ONE (17:56)
[2022-06-09] MEDS ORDERED: ACETAMINOPHEN 325 MG TABLET (FP) ONE (17:59)
[2022-06-09] MEDS ORDERED: LIDOCAINE 5% TOPICAL PATCH ONE (17:59)
[2022-06-09] MEDS ORDERED: KETOROLAC TROMETHAMINE 15 MG/ML VIAL ONE (18:00)
[2022-06-10] MEDS ORDERED: LIDOCAINE PATCH REMOVAL MC SCH (06:00)
[2022-06-10] MEDS ORDERED: CYCLOBENZAPRINE HCL 5 MG TABLET PO ONE (22:56)
== END 2022-06-09 19:13 | disposition home or self-care (01) ==
LOC: JER 16:49
PROC: 3E023GC Introduction of Other Therapeutic Substance into Muscle, Percutaneous Approach (ICD-10-PCS; principal; 2022-06-09)
DX: M54.32 Sciatica, left side (principal)
CPT/HCPCS: 96372; 99284-25

== ENCOUNTER 2024-02-05 08:11 | Emergency (ER) | payer OTHER ==
[2024-02-05 08:22] VITALS: BP 119/68; PULSE 66; RESP 18; TEMP 98.6; BMI 28.0
[2024-02-05] MEDS ORDERED: KETOROLAC TROMETHAMINE 30 MG/1 ML VIAL ONE (09:30)
[2024-02-05] MEDS: KETOROLAC TROMETHAMINE 30 MG/1 ML VIAL IM ONE (09:38)
[2024-02-05 10:47] LABS: BASO % 0.9 % (0-2.0); EOS % 1.7 % (0-4.5); HEMATOCRIT 39.7 % (32.4-45.2); HEMOGLOBIN 13.2 GM/dL (10.7-15.3); LYMPH % 40.9 % (8-40); MCH 29.4 pg (25.7-33.7); MCHC 33.2 g/dl (32.0-36.0); MEAN CELL VOLUME 88.8 fl (80-96); MEAN PLT VOLUME 8.2 fl (7.5-11.1); MONO % 8.8 % (3.8-10.2); NEUT % 47.7 % (42.8-82.8); PLATELET COUNT 143 10^3/uL (134-434); RBC 4.47 M/mm3 (3.60-5.2); RDW 14.4 % (11.6-15.6); WHITE BLOOD COUNT 4.2 K/mm3 (4.0-10.0)
[2024-02-05 10:54] LABS: INR 0.99 (0.83-1.09); PROTHROMBIN TIME (PATIENT) 11.2 SEC (9.7-13.0)
[2024-02-05 11:06] LABS: POTASSIUM 3.8 mmol/L (3.5-5.1)
[2024-02-05 11:09] LABS: ALBUMIN 3.9 g/dl (3.4-5.0); BLOOD UREA NITROGEN 10.7 mg/dL (7-18); CALCIUM 8.9 mg/dL (8.5-10.1); MAGNESIUM 2.2 mg/dL (1.8-2.4)
[2024-02-05 11:12] LABS: CREATININE 0.8 mg/dL (0.55-1.3)
[2024-02-05 11:14] LABS: BILIRUBIN,TOTAL 0.8 mg/dL (0.2-1)
[2024-02-05 11:17] LABS: N-TERMINAL BNP 33.5 pg/ml (5-125)
== END 2024-02-05 12:38 | disposition home or self-care (01) ==
LOC: JERFT 08:11 → JER 08:11 → JERFT 12:38
PROC: 3E0133Z Introduction of Anti-inflammatory into Subcutaneous Tissue, Percutaneous Approach (ICD-10-PCS; principal; 2024-02-05)
DX: M25.521 Pain in right elbow (principal); R07.9 Chest pain, unspecified; R06.02 Shortness of breath
CPT/HCPCS: 36415; 71046-TC-FY; 73070-TC-RT-FY; 80053; 83735; 83880; 84484; 85025; 85379; 85610; 93005; 93010; 96372; 99285-25

== ENCOUNTER 2024-05-01 08:33 | Emergency (ER) | payer OTHER ==
[2024-05-01 08:43] VITALS: BP 128/81; PULSE 66; RESP 16; TEMP 98.3; BMI 28.0
[2024-05-01] MEDS ORDERED: ACETAMINOPHEN 500 MG TABLET (FP) ONE (09:05)
[2024-05-01] MEDS: ACETAMINOPHEN 500 MG TABLET (FP) PO ONE (09:08)
[2024-05-01] MEDS ORDERED: LIDOCAINE 4% PATCH TP ONE (11:38)
[2024-05-01] MEDS ORDERED: LIDOCAINE PATCH REMOVAL MC ONE (22:00)
[2024-05-02] MEDS ORDERED: LIDOCAINE 4% PATCH TP ONE (11:30)
== END 2024-05-01 12:06 | disposition home or self-care (01) ==
LOC: JERFT 08:33
DX: S39.012A Strain of muscle, fascia and tendon of lower back, initial encounter (principal); S93.402A Sprain of unspecified ligament of left ankle, initial encounter; S90.812A Abrasion, left foot, initial encounter; W10.8XXA Fall (on) (from) other stairs and steps, initial encounter
CPT/HCPCS: 72100-TC-FY; 73610-TC-LT-FY; 73630-TC-LT; 99284-25

== ENCOUNTER 2024-08-04 19:56 | Emergency (ER) | payer OTHER ==
[2024-08-04 20:02] VITALS: BP 142/77; PULSE 82; RESP 17; TEMP 98.3; BMI 27.3
[2024-08-04] MEDS ORDERED: IBUPROFEN 600 MG TABLET (FP) PO ONE (21:43)
[2024-08-04] MEDS: IBUPROFEN 600 MG TABLET (FP) PO ONE (21:52)
== END 2024-08-04 21:53 | disposition home or self-care (01) ==
LOC: JERFT 19:56
DX: M79.89 Other specified soft tissue disorders (principal); M79.672 Pain in left foot
CPT/HCPCS: 73630-TC-LT; 82962; 99284-25

== ENCOUNTER 2024-09-23 15:12 | Emergency (ER) | payer OTHER ==
[2024-09-23 15:25] VITALS: BP 125/66; PULSE 58; RESP 19; TEMP 98.8; BMI 27.0
[2024-09-23] MEDS ORDERED: ACETAMINOPHEN 500 MG TABLET (FP) ONE (16:30)
[2024-09-23] MEDS: ACETAMINOPHEN 500 MG TABLET (FP) PO ONE (16:32)
== END 2024-09-23 19:40 | disposition home or self-care (01) ==
LOC: JERFT 15:12
DX: M79.675 Pain in left toe(s) (principal)
CPT/HCPCS: 73630-TC-LT; 99283-25

== ENCOUNTER 2025-01-20 08:38 | Emergency (ER) | payer OTHER ==
[2025-01-20 08:47] VITALS: BP 119/70; PULSE 72; RESP 16; TEMP 98; BMI 26.6
== END 2025-01-20 10:23 | disposition home or self-care (01) ==
LOC: JERFT 08:38
DX: I80.01 Phlebitis and thrombophlebitis of superficial vessels of right lower extremity (principal); M79.661 Pain in right lower leg; M25.521 Pain in right elbow; G89.29 Other chronic pain
CPT/HCPCS: 99283-25

== ENCOUNTER 2025-03-18 08:21 | Emergency (ER) | payer OTHER ==
[2025-03-18 08:29] VITALS: BP 136/75; PULSE 70; RESP 18; TEMP 98.5; BMI 27.4
[2025-03-18] MEDS ORDERED: ACETAMINOPHEN 325 MG TABLET (FP) ONE (09:41)
[2025-03-18] MEDS: ACETAMINOPHEN 325 MG TABLET (FP) PO ONE (09:42)
[2025-03-18 09:58] LABS: ABSOLUTE IMMATURE GRANULOCYTES 0.01 x10^3/uL (0.0-0.031); BASOPHILS # 0.02 x10^3/uL (0.01-0.08); EOSINOPHIL % 2.7 % (0.7-5.8); EOSINOPHILS # 0.11 x10^3/uL (0.04-0.36); MCHC 31.4 g/dl (32.2-35.5); MEAN CELL VOLUME 92.0 fl (79.4-94.8); MEAN PLT VOLUME 10.3 fl (9.4-12.3); MONOCYTE # 0.40 x10^3/uL (0.24-0.86); MONOCYTE % 9.9 % (4.7-12.5); RDW 13.8 % (12.4-16.4)
[2025-03-18 10:27] LABS: GLUCOSE,RANDOM 109.0 mg/dL (74-106); TOT PROT 7.6 g/dl (6.4-8.2)
[2025-03-18 10:28] LABS: CO2 26.0 mmol/L (21-32)
[2025-03-18 10:30] LABS: ALK PHOS 101.0 U/L (40-150)
[2025-03-18 10:32] LABS: SGOT/AST 30.0 U/L (5-34); SGPT/ALT 26.0 U/L (0-55)
[2025-03-18 10:33] LABS: CREATININE 0.62 mg/dL (0.55-1.3)
[2025-03-18 10:40] LABS: HCV DIAGNOSTIC IN-HOUSE W/RFLX NON-REACTIVE (NONREACTIVE)
[2025-03-18 10:42] LABS: HIV INTERPRETATION NEGATIVE (NEGATIVE)
[2025-03-18 10:48] LABS: EPI CELLS 17 /uL (0-25.1); HYALINE CASTS 0 /uL (0-3.1); URINE APPEARANCE CLEAR; URINE BACTERIA 1482 /uL (0-1359); URINE BILIRUBIN NEGATIVE (NEGATIVE); URINE COLOR YELLOW; URINE GLUCOSE (UA) NEGATIVE (NEGATIVE); URINE KETONE NEGATIVE (NEGATIVE); URINE LEUK ESTERASE TRACE (NEGATIVE); URINE NITRITE NEGATIVE (NEGATIVE); URINE PROTEIN NEGATIVE (NEGATIVE); URINE RBC 8 /uL (0-23.9); URINE UROBILINOGEN 0.2 mg/dL (0.2-1.0); URINE WBC 11 /uL (0-25.8)
== END 2025-03-18 13:20 | disposition home or self-care (01) ==
LOC: JER 08:21
DX: R51.9 Headache, unspecified (principal); M25.512 Pain in left shoulder
CPT/HCPCS: 36415; 70450-TC; 71045-TC-FY; 80053; 81003; 83735; 84484; 85025; 86803; 87086; 87389; 93005; 93010; 99285-25